=== PATIENT | male | born 1960 | race Caucasian/White ===

== ENCOUNTER 2016-12-14 21:51 | Emergency (ER) | payer BC | END 2016-12-14 23:20 | disposition home or self-care (01) | LOC: D.ER 21:51 | DX: S40.022A Contusion of left upper arm, initial encounter (principal); S00.12XA Contusion of left eyelid and periocular area, initial encounter; Y04.2XXA Assault by strike against or bumped into by another person, initial encounter; Y93.89 Activity, other specified; Y92.89 Other specified places as the place of occurrence of the external cause; S01.112A Laceration without foreign body of left eyelid and periocular area, initial encounter ==

== ENCOUNTER → 2017-12-27 09:35 | Outpatient (CLI) | payer BC | END | disposition home or self-care (01) | LOC: D.MRI 09:35 | DX: M25.512 Pain in left shoulder (principal) ==

== ENCOUNTER → 2019-06-25 14:02 | Outpatient (CLI) | payer BC | END | disposition home or self-care (01) | LOC: D.MRI 14:02 | PROVIDERS: ATTEND Family Medicine | DX: M54.12 Radiculopathy, cervical region (principal) ==